=== PATIENT | female | born 1960 | race Caucasian/White ===

== ENCOUNTER 2021-01-14 19:11 | Emergency (ER) | payer BC, SELFPAY ==
[2021-01-14 19:34] VITALS: BP 165/97; PULSE 70; RESP 16; TEMP 36.6; O2SAT 99
--- NOTE | 2021-01-14 20:44 | W.ED.BACK ---
HPI - Back Pain/Injury General: Chief Complaint: Back Pain/Injury Stated Complaint: Back pain Time Seen by Provider: 01/14/21 20:44 History of Present Illness: HPI Narrative: 60-year-old female comes in today with complaints of mid back pain. Patient reports pain radiates around under the right breast. Patient denies any falls or injuries. Patient has had previous problems with back pain. Patient does work in a job where she has significant lifting. Review of Systems General: Reports: 10 or more systems reviewed and unremarkable except in HPI and below Musc: Reports: back pain Physical Exam Const: COMMON NORMALS: no acute distress and patient oriented x3 GENERAL APPEARANCE: cooperative HENMT: COMMON NORMALS: normocephalic HEAD & SCALP: normal to inspection and normocephalic MOUTH: Normal oral and palatal mucosa present Eye: GENERAL EYE: appearance normal, both eyes and all related structures Neck/C-Spine: COMMON NORMALS: full ROM Chest: COMMONS NORMALS: normal inspection of the chest Resp: COMMON NORMALS: normal respiratory effort EFFORT & INSPECTION: Yes able to speak in complete sentences Cardio: COMMON NORMALS: regular rate and regular rhythm RATE: regular rate RHYTHM: regular rhythm GI: COMMON NORMALS: non-tender : COMMON NORMALS: Yes no CVA tenderness BLADDER/KIDNEY EXAM: Yes no CVA tenderness Back/Pelvis: COMMON NORMALS: no CVA tenderness THORACIC SPINE/UPPER BACK: Yes thoracic spinal tenderness T-spine tenderness location: T9 and Yes paraspinal muscle tenderness Extremity: COMMON NORMALS: normal to inspection Neuro: COMMON NORMALS: patient oriented x3 and moves all extremities Psych: COMMON NORMALS: mental status grossly normal and cooperative Skin: COMMON NORMALS: no rashes or lesions noted GENERAL SKIN EXAM: no rashes or lesions noted Course Vital Signs: Vital signs: Vital Signs Temperature 97.8 F 01/14/21 19:34 Pulse Rate 70 01/14/21 19:34 Respiratory Rate 16 01/14/21 19:34 Blood Pressure 165/97 01/14/21 19:34 Pulse Oximetry 99 01/14/21 19:34 MDM - Back Pain/Injury MDM Narrative: Medical decision making narrative: 60-year-old female comes in with mid back pain. On exam patient has tenderness around thoracic 9-10 area of the thoracic spine. Patient has muscle tenderness to the right posterior thoracic paraspinous muscles. Evaluation of the other spine is negative. Differential diagnosis includes intervertebral disc disease, facet arthropathy, vertebral fracture. X-rays of thoracic and lumbar spine indicated no fractures but degenerative changes in thoracic 9-10 area and L5-S1 lumbar. Believe patient may have some exacerbation of degenerative disc disease and recommend activity and medications for pain. Patient was encouraged to drink plenty of water continue with Tylenol use hydrocodone and tizanidine for breakthrough pain. Recommended follow-up with primary care for further instruction. Patient reported understanding and agreed to plan. Review of the record indicated no recent prescriptions for hydrocodone with acetaminophen. Discharge Plan Discharge Patient Disposition: Home Clinical Impression: Degeneration, intervertebral disc, thoracolumbar Thoracic back pain Qualifiers: Chronicity: acute Back pain laterality: midline Qualified Code(s): M54.6 - Pain in thoracic spine Condition: Stable Prescriptions: New hydrocodone-acetaminophen 5-325 mg tablet 1 tab PO Q6H PRN (Reason: pain (scale score 7-10)) Qty: 10 RF: 0 tizanidine 4 mg tablet 4 mg PO Q8H PRN (Reason: muscle spasticity) Qty: 10 RF: 0 Discharge Orders: Discharge ED (Routine); Ordered 01/14/21 Ordered By: Lauro Hicks Referrals: Edinson Sow MD [Primary Care Provider] - Discharge Diet: Usual diet Discharge Activity: Increase activity as tolerated Patient Instructions: Degenerative Disc Disease (ED), Opioid Safety Activity Restrictions/Additional Instructions: Activity as tolerated. Continue with acetaminophen to control pain. Use hydrocodone for breakthrough pain. Use tizanidine for muscle spasms. Drink plenty of water with medication. Follow-up with primary care for further evaluation and treatment. Return to the ER for new concerns or worsening symptoms. Coding Level of Care Code ED Accounts Receivable Representative for Seymour Thakkar
--- NOTE | 2021-01-14 21:12 | XRR_ITS ---
PROCEDURE INFORMATION: Exam: XR Lumbosacral Spine Exam date and time: 01/14/2021 9:12 PM Age: 60 years old Clinical indication: Other: Mid back pain TECHNIQUE: Imaging protocol: XR of the lumbosacral spine. Views: 2 or 3 views. COMPARISON: No relevant prior studies available. FINDINGS: Bones/joints: The visible portion of the pelvis and sacrum is intact. Spinal alignment is normal. Vertebral body height is maintained. There is moderate lower lumbar facet spondylosis. There is marked L5-S1 disc space narrowing. Soft tissues: Visible soft tissues are unremarkable. XR/XR lumbar spine 2-3V* [id number] IMPRESSION: 1. No acute findings. 2. Lower lumbar degenerative disease.
--- NOTE | 2021-01-14 21:12 | XRR_ITS ---
PROCEDURE INFORMATION: Exam: XR Thoracic Spine Exam date and time: 01/14/2021 9:12 PM Age: 60 years old Clinical indication: Other: Mid back pain TECHNIQUE: Imaging protocol: XR of the thoracic spine. Views: 3 views. COMPARISON: No relevant prior studies available. FINDINGS: Bones/joints: Spinal alignment is normal. Vertebral body height is maintained. There are prominent anterolateral vertebral osteophytes at T9-10. No acute fracture. Visible portions of the ribs are intact. Soft tissues: Unremarkable. Lungs: Visible portions of the lungs are unremarkable. XR/XR thoracic spine 3V* [id number] IMPRESSION: No acute findings.
[2021-01-14] MEDS: dexamethasone 10 mg/mL INJ IM (21:47)
[2021-01-14] MEDS: HYDROcodone-acetaminophen 10-325 mg Tablet 1 TAB PO (22:06)
== END 2021-01-14 22:09 | disposition home or self-care (01) ==
PROVIDERS: Emergency Provider Nurse Practitioner Family; PCP Family Medicine
DX: M51.35 Other intervertebral disc degeneration, thoracolumbar region (principal)
CPT/HCPCS: 72072; 72100; 96372; 99283; J1100

== ENCOUNTER 2021-04-29 08:09 | Outpatient (CLI) | payer BC, SELFPAY ==
--- NOTE | 2021-04-29 08:18 | US_ITS ---
WS: [id number] ULTRASOUND RENAL TECHNIQUE: Ultrasound examination of both kidneys. CLINICAL INFORMATION: STAGE 3B CHRONIC KIDNEY DZ COMPARISON: None. FINDINGS: RIGHT: Right kidney is normal in size and appearance. Echogenicity: Normal. Cortical thickness: 1.0 cm; Normal. Hydronephrosis: None. Perinephric fluid: None. Right kidney measures: 8.9 cm x 3.7 cm x 3.1 cm. LEFT: Left kidney is normal in size and appearance. Echogenicity: Normal. Cortical thickness: 1.3 cm; Normal. Hydronephrosis: None. Perinephric fluid: None. Left kidney measures: 9.4 cm x 4.2 cm x 4.2 cm. Normal visualized aorta. US/US renal BI* [id number] IMPRESSION: Normal renal ultrasound and bladder.
== END 2021-04-29 08:10 | disposition home or self-care (01) ==
PROVIDERS: PCP Family Medicine; Visit Provider Registered Nurse
DX: N18.32 Chronic kidney disease, stage 3b (principal)
CPT/HCPCS: 76770

== ENCOUNTER 2024-01-13 11:18 | Emergency (ER) | payer BC, SELFPAY ==
[2024-01-13 11:21] VITALS: BP 160/84; PULSE 60; RESP 18; TEMP 36.6; O2SAT 99; BMI 32.3
[2024-01-13 11:29] VITALS: BP 160/84; PULSE 60; RESP 18; TEMP 36.6; O2SAT 99
--- NOTE | 2024-01-13 11:36 | ED_ITS ---
HPI - Animal Bite General: Chief Complaint: Animal Bite Stated Complaint: Right arm puncture wond by dog Time Seen by Provider: 01/13/24 11:26 Source: patient Mode of arrival: ambulatory Limitations: no limitations History of Present Illness: 63-year-old female states she has a 12-w solomon-old puppy who bit her right arm 1 week ago she states she had some increasing erythema to the wound states she went to get antibiotics. She denies any pain she had no fevers states the puppy is up-to-date on his shots. Associated symptoms: Deny chills, fever(s) or headache(s) Related Data Previous Rx's Medication Instructions Recorded hydrocodone 5 mg-acetaminophen 325 1 tab PO Q6H PRN pain (scale score 01/14/21 mg tablet 7-10) #10 tabs tizanidine 4 mg tablet 4 mg PO Q8H PRN muscle spasticity 01/14/21 #10 tabs amoxicillin 500 mg-potassium 1 tab PO BID #14 tabs 01/13/24 clavulanate 125 mg tablet (Augmentin) Allergies Allergy/AdvReac Type Severity Reaction Status Date / Time No Known Allergies Allergy Verified 01/14/21 19:37 Review of Systems Const: Denies: fever(s), chills, body aches or change in appetite ENMT: Denies: throat pain or dental pain Card: Denies: chest pain Resp: Denies: dyspnea GI: Denies: abdominal pain, nausea, vomiting or diarrhea Musc: Reports: extremity pain; Denies: neck pain or back pain Skin/Breast: Reports: erythema; Denies: rash Neuro: Denies: headache(s) Physical Exam Const: COMMON NORMALS: no acute distress, patient oriented x3 and healthy appearing HENMT: COMMON NORMALS: normocephalic and atraumatic HEAD & SCALP: normocephalic and atraumatic Eye: COMMON NORMALS: conjunctivae normal CONJUNCTIVA: Yes conjunctivae normal Neck/C-Spine: COMMON NORMALS: full ROM and supple Chest: COMMONS NORMALS: normal inspection of the chest Resp: COMMON NORMALS: normal respiratory effort Cardio: COMMON NORMALS: regular rate RATE: regular rate Extremity: COMMON NORMALS: full ROM NARRATIVE EXTREMITY EXAM: Puncture wound to right forearm with slight erythema Neuro: COMMON NORMALS: patient oriented x3, moves all extremities and no focal motor deficits Psych: COMMON NORMALS: mental status grossly normal, Normal thought process present and cooperative THOUGHT PROCESS: Normal thought process present Skin: COMMON NORMALS: no rashes or lesions noted GENERAL SKIN EXAM: no rashes or lesions noted Course Vital Signs: Vital signs: Vital Signs Temperature 97.8 F 01/13/24 11:29 Pulse Rate 60 01/13/24 11:29 Respiratory Rate 18 01/13/24 11:29 Blood Pressure 160/84 01/13/24 11:29 Pulse Oximetry 99 01/13/24 11:29 Oxygen Delivery Me thod Room Air 01/13/24 11:29 MDM - Animal Bite Medical Decision Making Patient presents for dog bite to her right arm has some mild cellulitis we will start her on Augmentin does not need rabies prophylaxis she stable for discharge follow-up with PCP return if worsening. No radiology studies performed this visit Discharge Plan Discharge Patient Disposition: Home Clinical Impression: Dog bite, Cellulitis of right forearm Condition: Stable Prescriptions: New amoxicillin-pot clavulanate [Augmentin] 500-125 mg tablet 1 tab PO BID Qty: 14 0RF No Action hydrocodone-acetaminophen 5-325 mg tablet 1 tab PO Q6H PRN (Reason: pain (scale score 7-10)) Qty: 10 0RF tizanidine 4 mg tablet 4 mg PO Q8H PRN (Reason: muscle spasticity) Qty: 10 0RF Discharge Orders: Discharge ED (Routine); Ordered 01/13/24 Ordered By: Marcell Dueñas Referrals: Edinson Sow MD [Primary Care Provider] - 4-7 days Discharge Diet: Advance as tolerated Discharge Activity: Resume usual activity Patient Instructions: Animal Bite (ED) Coding Level of Care Code ED Supervisor Composing Room for Seymour Thakkar
[2024-01-13 11:41] VITALS: PULSE 62; O2SAT 97
== END 2024-01-13 11:43 | disposition home or self-care (01) ==
PROVIDERS: Emergency Provider Emergency Medicine; PCP Family Medicine
DX: L03.113 Cellulitis of right upper limb (principal); W54.0XXA Bitten by dog, initial encounter
CPT/HCPCS: 99283